=== PATIENT | male | born 1990 | race Caucasian/White ===

== ENCOUNTER 2021-07-10 19:33 | Emergency (ER) | payer BC | END 2021-07-10 22:58 | disposition home or self-care (01) | LOC: JD.ED 19:33 | DX: U07.1 COVID-19 (principal); F45.8 Other somatoform disorders; Z28.310 Unvaccinated for COVID-19; Z86.16 Personal history of COVID-19; Z87.891 Personal history of nicotine dependence; Z20.822 Contact with and (suspected) exposure to COVID-19 | CPT/HCPCS: 36415; 36600; 71046; 71046-26; 80053; 81001; 82803; 83735; 83880; 84443; 84484; 85025; 85379; 93005; 99284-25; U0002 ==

== ENCOUNTER 2022-03-21 15:10 | Emergency (ER) | payer BC ==
[2022-03-21] MEDS ORDERED: Ondansetron 4 MG/2 ML SDV IVPUSH ONE (16:51)
[2022-03-21] MEDS ORDERED: Sodium Chloride 0.9% 1,000 ML IV ONE (16:51)
[2022-03-21] MEDS ORDERED: Sodium Chloride 0.9% 10 ML Syringe FLUSH PRN (16:51)
[2022-03-21 18:09] LABS: CORONAVIRUS COVID-19 NAA NEGATIVE (NEGATIVE)
[2022-03-21 18:22] LABS: ESTIMATED GFR 103 mL/min (>60)
== END 2022-03-21 20:05 | disposition home or self-care (01) ==
LOC: JD.ED 15:10
DX: R11.0 Nausea (principal); Z86.16 Personal history of COVID-19; Z20.822 Contact with and (suspected) exposure to COVID-19
CPT/HCPCS: 0240U; 36415; 70450; 80053; 85025; 86140; 96361; 96374; 99284; J2405; J3490; J7030